=== PATIENT | male | born 2000 ===

== ENCOUNTER 2019-05-27 19:12 | Emergency (ER) | payer OTHER ==
[~2019-05-27] VITALS: Ht 182.9 cm; Wt 131.8 kg
[2019-05-27] MEDS ORDERED: METF-960 PO (19:26)
[2019-05-27 19:41] LABS: GLUCOSE,POINT OF CARE 135 MG/DL (70-110)
[2019-05-27 20:19] VITALS: BP 111/74
[2019-05-27] MEDS ORDERED: LIDOCAINE 1% 10 ML VIAL INJ ONE (20:30)
[2019-05-27] MEDS ORDERED: PERTUSS(ACELL),DIPH,TET VAC/PF 0.5 ML VIAL IM ONE (20:30)
[2019-05-27] MEDS ORDERED: BACITRACIN 0.9 GM PACKET OINTMENT TP ONE (20:30)
[2019-05-27] MEDS ORDERED: POVIDONE-IODINE 10% 15 ML SOLUTION UD TP ONE (20:30)
== END 2019-05-27 21:34 | disposition home or self-care (01) ==
LOC: EMS 19:14
DX: S61.411A Laceration without foreign body of right hand, initial encounter (principal); E11.9 Type 2 diabetes mellitus without complications; F17.210 Nicotine dependence, cigarettes, uncomplicated; Z79.84 Long term (current) use of oral hypoglycemic drugs; W26.0XXA Contact with knife, initial encounter; Y93.G1 Activity, food preparation and clean up; Y92.89 Other specified places as the place of occurrence of the external cause; Y99.8 Other external cause status
CPT/HCPCS: 12001; 82962; 90471; 90715; 99283; J3490

== ENCOUNTER 2019-06-02 10:21 | Emergency (ER) | payer OTHER ==
[~2019-06-02] VITALS: Ht 182.9 cm; Wt 131.8 kg
[~2019-06-02 10:21] MED LIST: METF-960 PO
[2019-06-02 10:55] VITALS: BP 127/76
[2019-06-02] MEDS ORDERED: BACITRACIN 0.9 GM PACKET OINTMENT TP ONE (11:15)
== END 2019-06-02 12:25 | disposition home or self-care (01) ==
LOC: EMS 10:22
DX: S61.210D Laceration without foreign body of right index finger without damage to nail, subsequent encounter (principal); E11.9 Type 2 diabetes mellitus without complications; F17.210 Nicotine dependence, cigarettes, uncomplicated; F12.90 Cannabis use, unspecified, uncomplicated; Z48.02 Encounter for removal of sutures; X58.XXXD Exposure to other specified factors, subsequent encounter
CPT/HCPCS: 99406